=== PATIENT | male | born 1980 | race Hispanic/Latino ===

== ENCOUNTER → 2018-08-20 | Outpatient (CLI) | payer MEDICAID | END | disposition home or self-care (01) | LOC: RAH 09:48 | PROVIDERS: ATTEND Internal Medicine Cardiovascular Disease | DX: I10 Essential (primary) hypertension (principal); I25.10 Atherosclerotic heart disease of native coronary artery without angina pectoris | CPT/HCPCS: 76770; 93975 ==

== ENCOUNTER → 2022-07-31 | Outpatient (CLI) | payer MEDICAID ==
[~2022-07-31] MED LIST: ALBU6.7H14 IH; AMLO-258 PO; ASPI-1005 PO; ATOR-2 PO; AZIT500T4 PO; GUAIF600 PO; IPRNEB IA; IPRNEB NEB; LOSA100T58 PO; METO-409 PO; MONT10TA21 PO; PRED50TA2 PO
[2022-07-31 13:48] LABS: CHOLESTEROL 169 mg/dL (<200); HDL CHOLESTEROL 55 mg/dL (29-71); LDL DIRECT 88 mg/dL (0-99); TRIGLYCERIDES 190 mg/dL (30-200)
== END | disposition home or self-care (01) ==
LOC: LAB 09:28
PROVIDERS: ATTEND Physician Assistant
DX: E78.5 Hyperlipidemia, unspecified (principal); I25.119 Atherosclerotic heart disease of native coronary artery with unspecified angina pectoris; R55 Syncope and collapse; R42 Dizziness and giddiness
CPT/HCPCS: 36415; 80061

== ENCOUNTER → 2023-08-08 | Outpatient (CLI) | payer MEDICAID ==
[~2023-08-08] MED LIST changes: -LOSA100T58 PO; +LOSA100T59 PO; +MONT-46 PO; -MONT10TA21 PO
[2023-08-08 12:24] LABS: ALBUMIN 4.3 g/dL (3.5-5.0); BILIRUBIN,TOTAL 0.5 mg/dL (0.2-1.0); CREATININE 1.1 mg/dL (0.5-1.5); POTASSIUM 3.6 mmol/L (3.5-5.1); TOTAL PROTEIN, SERUM 7.6 g/dL (6.0-8.3)
== END | disposition home or self-care (01) ==
LOC: LAB 09:26
PROVIDERS: ATTEND Physician Assistant
DX: I10 Essential (primary) hypertension (principal); I25.10 Atherosclerotic heart disease of native coronary artery without angina pectoris; E78.5 Hyperlipidemia, unspecified
CPT/HCPCS: 36415; 80053; 80061

== ENCOUNTER 2023-09-28 13:25 | Inpatient (IN) | payer MEDICAID ==
[~2023-09-28] VITALS: Ht 162.6 cm; Wt 98.4 kg
[2023-09-28 13:30] VITALS: PULSE 90; RESP 21
[2023-09-28] MEDS: IPRATROPIUM/ALBUTEROL SULFATE 3 ML SOLUTION IH ONE ×2 (13:33→16:20)
[2023-09-28 14:58] LABS: APPEARANCE,URINE CLEAR (CLEAR); BILIRUBIN,URINE NEGATIVE (NEGATIVE); GLUCOSE, URINE (UA) 200 mg/dL (NEGATIVE); KETONES,URINE NEGATIVE (NEGATIVE); LEUKOCYTE ESTERASE ,URINE NEGATIVE Leu/uL (NEGATIVE); NITRATE,URINE NEGATIVE (NEGATIVE); OCCULT BLOOD,URINE NEGATIVE (NEGATIVE); PROTEIN,URINE 30 mg/dL (NEGATIVE); UROBILINOGEN,URINE 0.2 mg/dL (0.2-1.0)
[2023-09-28 15:00] LABS: ADD UA MICROSCOPIC YES; COLOR,URINE LIGHT-YELLOW (YELLOW)
[2023-09-28 15:02] LABS: MUCUS,URINE RARE LPF (None Seen); RBC,URINE 0-1 /HPF (0-1); SQUAMOUS EPITHELIAL CELL,UR RARE /HPF (0-2); WBC,URINE 0-1 /HPF (0-1)
[2023-09-28 15:18] LABS: COVID19 (SARS ANTIGEN RAPID) PRESUMPTIVE NEGATIVE (NEGATIVE); INFLUENZA TYPE A Negative For Type A (NEGATIVE); INFLUENZA TYPE B Negative For Type B (NEGATIVE)
[2023-09-28 15:26] LABS: HEMATOCRIT 44.3 % (42-54); MEAN CORPUSCULAR HEMOGLOBIN 30.3 pg (27.0-33.0); MEAN CORPUSCULAR HGB CONC 34.1 g/dL (32.0-36.0); MEAN CORPUSCULAR VOLUME 88.8 fL (79-99); RED BLOOD CELL COUNT(AUTO) 4.99 MIL/uL (4.50-6.20); RED CELL DISTRIBUTION WIDTH 12.5 % (11.0-15.5); WHITE BLOOD COUNT (AUTO) 7.5 K/uL (4.8-10.8)
[2023-09-28 15:29] LABS: CREATININE 0.9 mg/dL (0.5-1.3); POTASSIUM 3.6 mmol/L (3.5-5.1)
[2023-09-28 15:34] LABS: ALBUMIN 4.3 g/dL (3.5-5.0); BILIRUBIN,TOTAL 0.2 mg/dL (0.2-1.0); TOTAL PROTEIN, SERUM 8.4 g/dL (6.0-8.3)
[2023-09-28] MEDS ORDERED: IOHEXOL 350 MG/ML 100ML INFUS..BTL IV ONE (16:17)
[2023-09-28] MEDS ORDERED: IOHEXOL-350 75 ML VIAL IV ONE (16:17)
[2023-09-28 16:24] VITALS: PULSE 97; RESP 23
[2023-09-28] MEDS: SOLU-MEDROL 125MG VIAL IVP ONE (16:42)
[2023-09-28 17:41] LABS: ABG BASE EXCESS -2.3 mmol/L (-2.0-3.0); ABG HCO3 25.1 mmol/L (21.0-28.0); ABG OXYGEN SATURATION 96.3 % (95.0-99.0); ABG PCO2 54 mmHg (35-48); ABG PH 7.288 (7.35-7.450); DEVICE COMMENT RR VERONICA RN; PO2, ARTERIAL BG 94.5 mmHg (83.0-108.0); VENT MODE, BG NC (ROOM AIR)
[2023-09-28] MEDS: BUDESONIDE 0.25 MG/2 ML INH IH SCH (17:45)
[2023-09-28 17:46] VITALS: PULSE 91; RESP 22
[2023-09-28] MEDS: IPRATROPIUM/ALBUTEROL SULFATE 3 ML SOLUTION IH SCH (17:46)
[2023-09-28 17:55] VITALS: PULSE 91; RESP 20; O2SAT 98
[2023-09-28 18:06] LABS: INR <= 0.93 (0.85-1.15); PROTHROMBIN TIME 10.3 SEC (9.6-11.6)
[2023-09-28 18:08] LABS: PARTIAL THROMBOPLASTIN TIME 29.3 SEC (26.3-35.5)
[2023-09-28] MEDS: LEVOFLOXACIN 750 MG/D5W 150ML BAG IV ONE (18:11)
[2023-09-28] MEDS: ENOXAPARIN SODIUM 100 MG/1 ML SQ ONE (18:16)
[2023-09-28] MEDS: CEFTRIAXONE 2GM VIAL IVPB SCH (18:16)
[2023-09-28 18:25] LABS: AMPHET/METH SCREEN,URINE NEGATIVE (NEGATIVE); BARBITURATE SCREEN, URINE NEGATIVE (NEGATIVE); BENZODIAZEPINES SCREEN,URINE NEGATIVE (NEGATIVE); CANNABINOID SCREEN,URINE NEGATIVE (NEGATIVE); COCAINE SCREEN,URINE NEGATIVE (NEGATIVE); OPIATE SCREEN,URINE POSITIVE (NEGATIVE); PHENCYCLIDINE SCREEN,URINE NEGATIVE (NEGATIVE)
[2023-09-28 18:42] LABS: THYROID STIMULATING HORMONE 0.92 uIU/mL (0.36-3.74)
[2023-09-28 18:55] LABS: ABG BASE EXCESS -3.7 mmol/L (-2.0-3.0); ABG HCO3 22.6 mmol/L (21.0-28.0); ABG OXYGEN SATURATION 97.7 % (95.0-99.0); ABG PCO2 46 mmHg (35-48); ABG PH 7.313 (7.35-7.450); CARBON MONOXIDE 0.7; DEVICE COMMENT RR RN; HHb 2.3; PO2, ARTERIAL BG 109.6 mmHg (83.0-108.0); VENT MODE, BG BIPAP 12-6 (ROOM AIR)
[2023-09-28 19:08] VITALS: PULSE 96; RESP 24; O2SAT 96
[2023-09-28] MEDS: FAMOTIDINE 20MG VIAL IV SCH (21:13)
[2023-09-28] MEDS: SOLU-MEDROL 40MG VIAL IVP SCH (21:13)
[2023-09-28] MEDS: DOXYCYCLINE HYCLATE 100 MG TABLET PO SCH (21:13)
[2023-09-29] VITALS (17 sets, daily range): BP systolic 131–160; BP diastolic 70–103; PULSE 74–103; RESP 15–28; O2SAT 92–100
[2023-09-29] MEDS: INSULIN HUMULIN R 100 UNIT/ML 3ML SQ SCH
[2023-09-29] MEDS ORDERED: SOLU-MEDROL 40MG VIAL IVP SCH (01:00)
[2023-09-29] MEDS ORDERED: ATOR40TA71 PO (03:54)
[2023-09-29] MEDS ORDERED: METO-409 PO (03:54)
[2023-09-29] MEDS ORDERED: AMLO-258 PO (03:54)
[2023-09-29] MEDS ORDERED: LOSA100T59 PO (03:54)
[2023-09-29 06:58] LABS: BASOPHILS # (AUTO) 0.01 K/uL (0.00-0.20); BASOPHILS % (AUTO) 0.1 % (0.0-5.0); EOSINOPHILS # (AUTO) 0.01 K/uL (0.00-0.70); EOSINOPHILS % (AUTO) 0.1 % (0.0-8.0); HEMATOCRIT 41.2 % (42-54); IMMATURE GRANULOCYTE ABSOLUTE 0.02 K/uL (0-1); LYMPHOCYTES % (AUTO) 11.3 % (21.0-51.0); MEAN CORPUSCULAR HEMOGLOBIN 30.2 pg (27.0-33.0); MEAN CORPUSCULAR HGB CONC 34.7 g/dL (32.0-36.0); MEAN CORPUSCULAR VOLUME 86.9 fL (79-99); MONOCYTES # (AUTO) 0.2 K/uL (0.1-1.0); NEUTROPHILS # (AUTO) 7.2 K/uL (1.8-7.7); NEUTROPHILS % (AUTO) 86.3 % (40.0-77.0); PLATELET COUNT (AUTO) 210 K/uL (130-400); RED BLOOD CELL COUNT(AUTO) 4.74 MIL/uL (4.50-6.20); RED CELL DISTRIBUTION WIDTH 12.6 % (11.0-15.5); WHITE BLOOD COUNT (AUTO) 8.4 K/uL (4.8-10.8)
[2023-09-29 07:21] LABS: ALBUMIN 3.9 g/dL (3.5-5.0); BILIRUBIN,TOTAL 0.3 mg/dL (0.2-1.0); MAGNESIUM 1.8 mg/dL (1.80-2.40); POTASSIUM 4.2 mmol/L (3.5-5.1); TOTAL PROTEIN, SERUM 8.1 g/dL (6.0-8.3)
[2023-09-29] MEDS: LOSARTAN 100 MG TABLET PO SCH (09:17)
[2023-09-29] MEDS: AMLODIPINE 5 MG TAB PO SCH (09:17)
[2023-09-29] MEDS: ATORVASTATIN 40 MG TABLET PO SCH (09:17)
[2023-09-29] MEDS: METOPROLOL SUCCINATE 50 MG TAB.SR.24H PO SCH (09:17)
[2023-09-29] MEDS: ASPIRIN 81MG CHEW TAB PO SCH (09:18)
[2023-09-29] MEDS: GUAIFENESIN-DM 200/20 MG 10 ML PO PRN (12:07)
[2023-09-29] MEDS: BENZONATATE 100 MG CAPSULE PO PRN (12:07)
[2023-09-29] MEDS ORDERED: NON-FORMULARY MEDICATION 1 EACH (Metoprolol Succinate 1 TAB) PO SCH (23:00)
[2023-09-30] VITALS (16 sets, daily range): BP systolic 134–158; BP diastolic 77–93; PULSE 67–105; RESP 14–22; O2SAT 87–97
[2023-09-30] MEDS: 0.9%NACL 1000ML 1,000 ML IV SCH (00:43)
[2023-09-30 06:24] LABS: BASOPHILS # (AUTO) 0.02 K/uL (0.00-0.20); BASOPHILS % (AUTO) 0.2 % (0.0-5.0); HEMATOCRIT 39.4 % (42-54); IMMATURE GRANULOCYTE ABSOLUTE 0.08 K/uL (0-1); LYMPHOCYTES % (AUTO) 8.2 % (21.0-51.0); MEAN CORPUSCULAR HEMOGLOBIN 30.4 pg (27.0-33.0); MEAN CORPUSCULAR HGB CONC 33.8 g/dL (32.0-36.0); MONOCYTES # (AUTO) 0.5 K/uL (0.1-1.0); MONOCYTES % (AUTO) 3.6 % (3.0-13.0); NEUTROPHILS # (AUTO) 10.9 K/uL (1.8-7.7); NEUTROPHILS % (AUTO) 87.4 % (40.0-77.0); PLATELET COUNT (AUTO) 143 K/uL (130-400); RED BLOOD CELL COUNT(AUTO) 4.38 MIL/uL (4.50-6.20); WHITE BLOOD COUNT (AUTO) 12.5 K/uL (4.8-10.8)
[2023-09-30 06:40] LABS: MAGNESIUM 2.2 mg/dL (1.80-2.40)
[2023-09-30 07:34] LABS: B-TYPE NATRIURETIC PEPTIDE 21 pg/mL (0-100)
[2023-09-30] MEDS: GUAIFENESIN-CODEINE 5 ML SYRUP PO PRN (12:52)
[2023-09-30] MEDS: SODIUM CHLORIDE 3% FOR INHALATION 4 ML/AMP VIAL.NEB IH ONE ×2 (18:16→23:16)
[2023-09-30] MEDS: MONTELUKAST SODIUM 10 MG TAB PO SCH (20:16)
[2023-10-01] VITALS (11 sets, daily range): BP systolic 148–158; BP diastolic 79–93; PULSE 66–100; RESP 16–24; O2SAT 94–99
[2023-10-01 07:19] LABS: RHEUMATOID ARTHRITIS FACTOR <10.0 IU/mL (<14.0)
[2023-10-01 08:15] LABS: MYOGLOBIN, SERUM 166 ng/mL (28-72)
[2023-10-01] MEDS ORDERED: AMOX1TAB16 PO (14:02)
[2023-10-01] MEDS ORDERED: SYMB8060 IH (14:02)
[2023-10-01] MEDS ORDERED: METH4TAB3 PO (14:02)
[2023-10-01] MEDS ORDERED: DOXY100T2 PO (14:02)
[2023-10-01] MEDS ORDERED: MONT-46 PO (14:02)
[2023-10-01] MEDS ORDERED: ALBU6.7H14 IH (14:03)
[2023-10-02 15:14] LABS: ATYPICAL P-ANCA AB <1:20 titer (Neg:<1:20); CYTOPLASMIC (C-ANCA) AB, IGG <1:20 titer (Neg:<1:20)
== END 2023-10-01 17:15 | disposition home or self-care (01) | DRG 133 ==
LOC: EDH 13:25 → EDHIP 17:20 → 2BH 09-29 07:23 → 4DH 10-01 00:12
PROVIDERS: ADMIT Internal Medicine; ATTEND Internal Medicine
PROC: 5A09357 Assistance with Respiratory Ventilation, Less than 24 Consecutive Hours, Continuous Positive Airway Pressure (ICD-10-PCS; principal; 2023-09-28)
PROC: 5A09357 Assistance with Respiratory Ventilation, Less than 24 Consecutive Hours, Continuous Positive Airway Pressure (ICD-10-PCS; 2023-09-29)
PROC: 5A09357 Assistance with Respiratory Ventilation, Less than 24 Consecutive Hours, Continuous Positive Airway Pressure (ICD-10-PCS; 2023-09-30)
PROC: 5A09357 Assistance with Respiratory Ventilation, Less than 24 Consecutive Hours, Continuous Positive Airway Pressure (ICD-10-PCS; 2023-10-01)
DX: J96.01 Acute respiratory failure with hypoxia (principal); E87.29 Other acidosis; J18.9 Pneumonia, unspecified organism; J45.901 Unspecified asthma with (acute) exacerbation; J96.02 Acute respiratory failure with hypercapnia; R73.9 Hyperglycemia, unspecified; I25.10 Atherosclerotic heart disease of native coronary artery without angina pectoris; I10 Essential (primary) hypertension; Z20.822 Contact with and (suspected) exposure to COVID-19; E66.9 Obesity, unspecified; E78.5 Hyperlipidemia, unspecified; R73.03 Prediabetes; Z95.1 Presence of aortocoronary bypass graft; Z95.5 Presence of coronary angioplasty implant and graft; I25.2 Old myocardial infarction; Z68.37 Body mass index [BMI] 37.0-37.9, adult
CPT/HCPCS: 36415; 36600; 71045; 71250; 76376; 80053; 80305; 81001; 82103; 82104; 82435; 82550; 82803; 82947; 82948; 83036; 83516; 83605; 83735; 83874; 83880; 84132; 84145; 84295; 84443; 84484; 85018; 85025; 85027; 85378; 85610; 85651; 85730; 86038; 86140; 86215; 86235; 86255; 86431; 87040; 87071; 87205; 87426; 87804; 93005; 93306; 93356; 93970; 94640; 94660; 94664; 94760; 96365; 96375; G0378; J0696; J1650; J2920; J2930; J3490; Q9967